=== PATIENT | male | born 1940 | race Caucasian/White ===

== ENCOUNTER 2018-09-09 18:43 | Inpatient (IN) | payer MEDICARE, OTHER ==
[~2018-09-09] VITALS: Ht 170.2 cm; Wt 47.3 kg
[2018-09-09] MEDS ORDERED: SODIUM CHLORIDE 0.9% 1000ML BAG (SEPSIS BOLUS) IV ONE (19:15)
[2018-09-09 19:48] LABS: BASOPHILS % 0.3 % (0.0-2.0); CHLORIDE 111 mEq/L (98-107); HEMATOCRIT. 41.2 % (42.0-52.0); HEMOGLOBIN. 13.7 g/dL (14.0-18.0); LYMPHOCYTES % 12.3 % (20.0-50.0); MEAN CORPUSCULAR HEMOGLOBIN 30.8 pg (28.0-32.0); MEAN CORPUSCULAR VOLUME 92.5 fL (80.0-94.0); MEAN PLATELET VOLUME 8.6 fl (7.4-10.4); MONOCYTES % 8.4 % (2.0-8.0); PLATELET 384 x1000/uL (130-400); RED BLOOD CELL COUNT 4.45 mill/uL (4.7-6.1); RED CELL DISTRIBUTION WIDTH 14.1 % (11.6-14.6)
[2018-09-09 19:51] LABS: INR 1.2; PROTHROMBIN TIME 12.5 sec (9.6-11.0)
[2018-09-09 19:52] LABS: ETHANOL BLOOD < 10 mg/dL
[2018-09-09 20:37] LABS: CLARITY URINE CLEAR (CLEAR); COLOR URINE YELLOW (YELLOW); KETONES URINE TRACE (NEGATIVE); LEUKOCYTE ESTERASE URINE NEGATIVE (NEGATIVE); NITRITE URINE NEGATIVE (NEGATIVE); OCCULT BLOOD URINE NEGATIVE (NEGATIVE); PROTEIN URINE TRACE (NEGATIVE); SPECIFIC GRAVITY URINE 1.019 (1.005-1.030)
[2018-09-09] MEDS ORDERED: AZITHROMYCIN 500 MG in DEXT 5% WATER 250 ML IV NR (20:45)
[2018-09-09] MEDS ORDERED: PIPERACILLIN/TAZOBACTAM 3.375GM/50ML PREMIX IV ONE (20:45)
[2018-09-09] MEDS ORDERED: PIPERACILLIN/TAZ 3.375G PREMIX 50 ML IV NR (21:00)
[2018-09-09] MEDS ORDERED: DIPHENHYDRAMINE 50MG/ML VIAL IV PRN (23:00)
[2018-09-09] MEDS ORDERED: MAGNESIUM/ALUMINUM HYDROXIDE/SIMETHICONE 30ML UDC PO PRN (23:00)
[2018-09-09] MEDS ORDERED: LORAZEPAM 0.5MG TABLET PO PRN (23:00)
[2018-09-09] MEDS ORDERED: IPRATROPIUM/ALBUTEROL 0.5-3(2.5)MG/3ML NEB INH PRN (23:00)
[2018-09-09] MEDS ORDERED: GUAIFENESIN 200MG/10ML SUGAR FREE UDC PO PRN (23:00)
[2018-09-09] MEDS ORDERED: SODIUM CHLORIDE 0.9% 1,000 ML IV ONE (23:00)
[2018-09-09] MEDS ORDERED: ONDANSETRON HCL 4MG/2ML INJ IV PRN (23:00)
[2018-09-10] VITALS (14 sets, daily range): BP systolic 77–133; BP diastolic 39–87
[2018-09-10] MEDS: DEXT 5%/0.45% NACL 1000ML 1,000 ML IV SCH ×3 (00:33→21:15)
[2018-09-10] MEDS ORDERED: CEFTRIAXONE 1 G PREMIX 50 ML IV SCH (01:00)
[2018-09-10] MEDS: CEFTRIAXONE 1 G PREMIX 50 ML IV SCH (02:33)
[2018-09-10 06:16] LABS: BASOPHILS % 0.4 % (0.0-2.0); EOSINOPHILS % 0.2 % (0.0-5.0); HEMATOCRIT. 31.6 % (42.0-52.0); HEMOGLOBIN. 10.8 g/dL (14.0-18.0); LYMPHOCYTES % 14.7 % (20.0-50.0); MEAN CORPUSCULAR VOLUME 91.1 fL (80.0-94.0); MEAN PLATELET VOLUME 7.9 fl (7.4-10.4); MONOCYTES % 8.6 % (2.0-8.0); NEUTROPHILS % 76.1 % (40.0-76.0); PLATELET 245 x1000/uL (130-400); RED BLOOD CELL COUNT 3.47 mill/uL (4.7-6.1); RED CELL DISTRIBUTION WIDTH 13.5 % (11.6-14.6)
[2018-09-10 07:23] LABS: PHOSPHORUS 2.9 mg/dL (2.5-4.9)
[2018-09-10] MEDS ORDERED: POTASSIUM CHLORIDE INJ 40 MEQ in DEXT 5% WATER 250 ML IV NR (11:30)
[2018-09-11] VITALS (16 sets, daily range): BP systolic 78–172; BP diastolic 45–77
[2018-09-11] MEDS: CEFTRIAXONE 1 G PREMIX 50 ML IV SCH (01:04)
[2018-09-11] MEDS: DEXT 5%/0.45% NACL 1000ML 1,000 ML IV SCH (04:57)
[2018-09-11 05:58] LABS: BASOPHILS % 0.6 % (0.0-2.0); EOSINOPHILS % 1.3 % (0.0-5.0); HEMATOCRIT. 30.2 % (42.0-52.0); HEMOGLOBIN. 10.2 g/dL (14.0-18.0); LYMPHOCYTES % 14.7 % (20.0-50.0); MEAN CORPUSCULAR HEMOGLOBIN 30.7 pg (28.0-32.0); MEAN CORPUSCULAR VOLUME 91.2 fL (80.0-94.0); MEAN PLATELET VOLUME 8.5 fl (7.4-10.4); MONOCYTES % 9.3 % (2.0-8.0); NEUTROPHILS % 74.1 % (40.0-76.0); PLATELET 236 x1000/uL (130-400); RED BLOOD CELL COUNT 3.32 mill/uL (4.7-6.1)
[2018-09-11 06:09] LABS: CHLORIDE 123 mEq/L (98-107)
[2018-09-11 06:20] LABS: PHOSPHORUS 1.6 mg/dL (2.5-4.9)
[2018-09-11] MEDS: DOCUSATE SODIUM 250MG CAPSULE PO SCH ×2 (09:15→16:53)
[2018-09-11] MEDS ORDERED: DOCUSATE SODIUM 250MG CAPSULE PO NR (09:15)
[2018-09-11] MEDS ORDERED: BISACODYL 5MG TABLET PO NR (09:15)
[2018-09-11 11:30] LABS: CARCINO EMBRYONIC ANTIGEN 0.9 ng/ml
[2018-09-11] MEDS ORDERED: POTASSIUM PHOS,M-BASIC-D-BASIC 20 MMOL in DEXT 5% WATER 243.3333 ML IV ONE (11:30)
[2018-09-11 11:41] LABS: HEPATITIS B SURFACE ANTIGEN NEGATIVE
[2018-09-11 12:07] LABS: HEPATITIS A AB IGM NEGATIVE (NEGATIVE)
[2018-09-11] MEDS: PANTOPRAZOLE SODIUM 40 MG/VIAL IV SCH (13:21)
[2018-09-11] MEDS: DEXT 5%/0.45% NACL KCL 20MEQ/L 1,000 ML IV SCH (16:31)
[2018-09-12] VITALS (11 sets, daily range): BP systolic 82–168; BP diastolic 46–72
[2018-09-12] MEDS: CEFTRIAXONE 1 G PREMIX 50 ML IV SCH (03:26)
[2018-09-12] MEDS: DEXT 5%/0.45% NACL KCL 20MEQ/L 1,000 ML IV SCH (03:26)
[2018-09-12 06:12] LABS: BASOPHILS % 0.6 % (0.0-2.0); HEMATOCRIT. 26.8 % (42.0-52.0); LYMPHOCYTES % 17.4 % (20.0-50.0); MEAN CORPUSCULAR HEMOGLOBIN 30.9 pg (28.0-32.0); MEAN CORPUSCULAR VOLUME 91.6 fL (80.0-94.0); MEAN PLATELET VOLUME 8.2 fl (7.4-10.4); PLATELET 207 x1000/uL (130-400); RED BLOOD CELL COUNT 2.92 mill/uL (4.7-6.1)
[2018-09-12 06:31] LABS: CHLORIDE 122 mEq/L (98-107)
[2018-09-12 06:47] LABS: PHOSPHORUS 1.5 mg/dL (2.5-4.9)
[2018-09-12] MEDS: PANTOPRAZOLE SODIUM 40 MG/VIAL IV SCH (08:53)
[2018-09-12] MEDS: DOCUSATE SODIUM 250MG CAPSULE PO SCH ×2 (08:58→17:00)
[2018-09-12] MEDS ORDERED: POTASSIUM PHOS,M-BASIC-D-BASIC 30 MMOL in DEXT 5% WATER 500 ML IV SCH (11:30)
[2018-09-12] MEDS: DEXT 5%/0.2% NACL 1,000 ML IV SCH ×2 (12:43→21:53)
[2018-09-13] VITALS: BP 134/52
[2018-09-13] MEDS: CEFTRIAXONE 1 G PREMIX 50 ML IV SCH (02:36)
[2018-09-13 03:00] VITALS: BP 116/52
[2018-09-13] MEDS: DEXT 5%/0.2% NACL 1,000 ML IV SCH ×2 (06:31→20:23)
[2018-09-13 08:17] VITALS: BP 101/49
[2018-09-13] MEDS: PANTOPRAZOLE SODIUM 40 MG/VIAL IV SCH (08:34)
[2018-09-13] MEDS: DOCUSATE SODIUM 250MG CAPSULE PO SCH ×2 (08:42→17:00)
[2018-09-13 12:00] VITALS: BP 116/51
[2018-09-13 16:00] VITALS: BP 115/50
[2018-09-13 20:00] VITALS: BP 108/47
[2018-09-13] MEDS: ACETAMINOPHEN 325MG TABLET PO PRN (23:51)
[2018-09-14] VITALS: BP 107/56
[2018-09-14] MEDS: CEFTRIAXONE 1 G PREMIX 50 ML IV SCH (01:38)
[2018-09-14 04:00] VITALS: BP 109/65
[2018-09-14] MEDS: DEXT 5%/0.2% NACL 1,000 ML IV SCH ×2 (05:26→18:32)
[2018-09-14 06:50] LABS: BASOPHILS % 0.7 % (0.0-2.0); EOSINOPHILS % 3.7 % (0.0-5.0); HEMATOCRIT. 26.6 % (42.0-52.0); LYMPHOCYTES % 18.4 % (20.0-50.0); MEAN CORPUSCULAR HEMOGLOBIN 30.7 pg (28.0-32.0); MEAN CORPUSCULAR VOLUME 91.1 fL (80.0-94.0); MEAN PLATELET VOLUME 7.9 fl (7.4-10.4); MONOCYTES % 10.5 % (2.0-8.0); NEUTROPHILS % 66.7 % (40.0-76.0); PLATELET 198 x1000/uL (130-400); RED BLOOD CELL COUNT 2.92 mill/uL (4.7-6.1); RED CELL DISTRIBUTION WIDTH 13.6 % (11.6-14.6)
[2018-09-14 08:00] VITALS: BP 109/50
[2018-09-14] MEDS: DOCUSATE SODIUM 250MG CAPSULE PO SCH ×3 (09:00→17:00)
[2018-09-14] MEDS: PANTOPRAZOLE SODIUM 40 MG/VIAL IV SCH (09:41)
[2018-09-14 09:54] LABS: T4 FREE 1.26 ng/dL (0.76-1.46)
[2018-09-14 10:46] LABS: VITAMIN B12 SERUM > 2000.0 pg/mL (211-911)
[2018-09-14 12:00] VITALS: BP 101/52
[2018-09-14] MEDS ORDERED: SODIUM BICARBONATE 4% (2.4MEQ) 5ML VIAL IV ONE (13:47)
[2018-09-14] MEDS ORDERED: LIDOCAINE HCL 1% 20ML VIAL (Pyxis) INJ ONE (13:48)
[2018-09-14 16:00] VITALS: BP 101/52
[2018-09-14 17:18] LABS: HEMATOCRIT 25.8 % (42.0-52.0); HEMOGLOBIN 8.8 g/dL (14.0-18.0)
[2018-09-14 20:00] VITALS: BP 91/52
[2018-09-15] VITALS: BP_SYST 106; BP_SYST 87; BP_DIAS 45; BP_DIAS 50
[2018-09-15] MEDS: CEFTRIAXONE 1 G PREMIX 50 ML IV SCH (01:39)
[2018-09-15 04:00] VITALS: BP 117/61
[2018-09-15] MEDS: ACETAMINOPHEN 325MG TABLET PO PRN (04:05)
[2018-09-15] MEDS: DEXT 5%/0.2% NACL 1,000 ML IV SCH (04:14)
[2018-09-15 06:40] LABS: BASOPHILS % 0.5 % (0.0-2.0); EOSINOPHILS % 1.4 % (0.0-5.0); HEMATOCRIT. 23.1 % (42.0-52.0); LYMPHOCYTES % 7.3 % (20.0-50.0); MEAN CORPUSCULAR HEMOGLOBIN 30.9 pg (28.0-32.0); MEAN CORPUSCULAR VOLUME 89.4 fL (80.0-94.0); MEAN PLATELET VOLUME 7.7 fl (7.4-10.4); MONOCYTES % 6.9 % (2.0-8.0); NEUTROPHILS % 83.9 % (40.0-76.0); PLATELET 203 x1000/uL (130-400); RED BLOOD CELL COUNT 2.59 mill/uL (4.7-6.1); RED CELL DISTRIBUTION WIDTH 13.5 % (11.6-14.6)
[2018-09-15 08:00] VITALS: BP 90/50
[2018-09-15 08:45] LABS: PHOSPHORUS 2.1 mg/dL (2.5-4.9)
[2018-09-15] MEDS: DOCUSATE SODIUM 250MG CAPSULE PO SCH ×2 (09:00→16:45)
[2018-09-15] MEDS: PANTOPRAZOLE SODIUM 40 MG/VIAL IV SCH (09:25)
[2018-09-15] MEDS ORDERED: SODIUM PHOS,M-BASIC-D-BASIC 30 MM in DEXT 5% WATER 500 ML IV NR (11:00)
[2018-09-15 12:00] VITALS: BP_SYST 90; BP_SYST 96; BP_DIAS 40; BP_DIAS 50
[2018-09-15 15:59] VITALS: BP_SYST 86; BP_SYST 94; BP_DIAS 45; BP_DIAS 50
[2018-09-15 20:00] VITALS: BP 93/49
[2018-09-16] VITALS: BP 86/39
[2018-09-16] MEDS: CEFTRIAXONE 1 G PREMIX 50 ML IV SCH (03:16)
[2018-09-16 04:00] VITALS: BP 92/44
[2018-09-16 06:32] LABS: BASOPHILS % 0.6 % (0.0-2.0); EOSINOPHILS % 1.5 % (0.0-5.0); HEMATOCRIT. 25.9 % (42.0-52.0); HEMOGLOBIN. 8.8 g/dL (14.0-18.0); MEAN CORPUSCULAR HEMOGLOBIN 30.6 pg (28.0-32.0); MEAN CORPUSCULAR VOLUME 89.5 fL (80.0-94.0); MONOCYTES % 1.3 % (2.0-8.0); NEUTROPHILS % 86.6 % (40.0-76.0); PLATELET 241 x1000/uL (130-400); RED CELL DISTRIBUTION WIDTH 13.8 % (11.6-14.6)
[2018-09-16 07:33] LABS: PHOSPHORUS 3.1 mg/dL (2.5-4.9)
[2018-09-16 08:00] VITALS: BP 85/38
[2018-09-16] MEDS: PANTOPRAZOLE SODIUM 40 MG/VIAL IV SCH (08:54)
[2018-09-16] MEDS ORDERED: MAGNESIUM 2 G PREMIX 50 ML IV NR (10:30)
[2018-09-16 12:00] VITALS: BP 97/39
[2018-09-16 16:00] VITALS: BP 96/46
[2018-09-16 20:00] VITALS: BP 96/42
[2018-09-17] VITALS (17 sets, daily range): BP systolic 99–126; BP diastolic 47–78
[2018-09-17] MEDS: CEFTRIAXONE 1 G PREMIX 50 ML IV SCH (03:12)
[2018-09-17 06:40] LABS: HEMATOCRIT. 25.5 % (42.0-52.0); HEMOGLOBIN. 8.8 g/dL (14.0-18.0); MEAN CORPUSCULAR HEMOGLOBIN 31.1 pg (28.0-32.0); MEAN CORPUSCULAR VOLUME 89.9 fL (80.0-94.0); MEAN PLATELET VOLUME 7.7 fl (7.4-10.4); PLATELET 287 x1000/uL (130-400); RED BLOOD CELL COUNT 2.83 mill/uL (4.7-6.1); RED CELL DISTRIBUTION WIDTH 13.4 % (11.6-14.6)
[2018-09-17 07:52] LABS: PLATELET ESTIMATE NORMAL
[2018-09-17 08:01] LABS: PHOSPHORUS 2.1 mg/dL (2.5-4.9)
[2018-09-17] MEDS ORDERED: SODIUM BICARBONATE 4% (2.4MEQ) 5ML VIAL IV ONE (09:38)
[2018-09-17] MEDS ORDERED: LIDOCAINE HCL 1% 20ML VIAL (Pyxis) INJ ONE (09:38)
[2018-09-17] MEDS ORDERED: FENTANYL CITRATE/PF 50MCG/ML 2ML VIAL IV ONE (10:15)
[2018-09-17] MEDS ORDERED: FENTANYL CITRATE/PF 50MCG/ML 2ML VIAL ONE (10:33)
[2018-09-17] MEDS: PANTOPRAZOLE SODIUM 40 MG/VIAL IV SCH (10:44)
[2018-09-17 13:24] LABS: HEMATOCRIT 27.1 % (42.0-52.0); HEMOGLOBIN 9.1 g/dL (14.0-18.0)
[2018-09-17] MEDS ORDERED: CLOP75TA33 PO (22:09)
[2018-09-17] MEDS ORDERED: LOSART (22:11)
[2018-09-17] MEDS ORDERED: LOSARTAN PO (22:11)
[2018-09-18] VITALS: BP 100/54
[2018-09-18 04:00] VITALS: BP 104/52
[2018-09-18 07:01] LABS: BASOPHILS % 0.7 % (0.0-2.0); EOSINOPHILS % 3.1 % (0.0-5.0); HEMATOCRIT. 23.6 % (42.0-52.0); HEMOGLOBIN. 8.2 g/dL (14.0-18.0); LYMPHOCYTES % 20.4 % (20.0-50.0); MEAN CORPUSCULAR HEMOGLOBIN 31.2 pg (28.0-32.0); MEAN CORPUSCULAR VOLUME 89.5 fL (80.0-94.0); MEAN PLATELET VOLUME 7.4 fl (7.4-10.4); NEUTROPHILS % 63.8 % (40.0-76.0); PLATELET 325 x1000/uL (130-400); RED BLOOD CELL COUNT 2.64 mill/uL (4.7-6.1); RED CELL DISTRIBUTION WIDTH 13.9 % (11.6-14.6)
[2018-09-18 07:41] LABS: PHOSPHORUS 2.2 mg/dL (2.5-4.9)
[2018-09-18 08:00] VITALS: BP 101/49
[2018-09-18] MEDS: PANTOPRAZOLE SODIUM 40 MG/VIAL IV SCH (08:51)
[2018-09-18] MEDS ORDERED: POTASSIUM PHOS,M-BASIC-D-BASIC 15 MMOL in DEXT 5% WATER 245 ML IV SCH (11:00)
[2018-09-18 11:39] VITALS: BP 110/44
[2018-09-18 16:00] VITALS: BP 104/48
[2018-09-18 16:57] VITALS: BP 104/48
== END 2018-09-18 20:13 | DRG 871 ==
LOC: ER 18:43 → ENRESERV 22:44 → 5EST 23:57 → 5WST 09-13 02:55 → 6EST 09-16 19:20
PROVIDERS: ADMIT Internal Medicine; ATTEND Internal Medicine
PROC: 0FB23ZX Excision of Left Lobe Liver, Percutaneous Approach, Diagnostic (ICD-10-PCS; principal; 2018-09-14)
PROC: 4A00X4Z Measurement of Central Nervous Electrical Activity, External Approach (ICD-10-PCS; 2018-09-14)
PROC: 0FB23ZX Excision of Left Lobe Liver, Percutaneous Approach, Diagnostic (ICD-10-PCS; 2018-09-17)
DX: A41.9 Sepsis, unspecified organism (principal); G92 Toxic encephalopathy; N17.9 Acute kidney failure, unspecified; E87.0 Hyperosmolality and hypernatremia; R64 Cachexia; E87.4 Mixed disorder of acid-base balance; Z68.1 Body mass index [BMI] 19.9 or less, adult; E87.6 Hypokalemia; K56.41 Fecal impaction; R16.0 Hepatomegaly, not elsewhere classified; D64.9 Anemia, unspecified; E87.8 Other disorders of electrolyte and fluid balance, not elsewhere classified; Z60.2 Problems related to living alone; I95.9 Hypotension, unspecified; E86.0 Dehydration; R26.9 Unspecified abnormalities of gait and mobility; K62.89 Other specified diseases of anus and rectum; I12.9 Hypertensive chronic kidney disease with stage 1 through stage 4 chronic kidney disease, or unspecified chronic kidney disease; N18.9 Chronic kidney disease, unspecified; K52.9 Noninfective gastroenteritis and colitis, unspecified; R29.6 Repeated falls; R32 Unspecified urinary incontinence; R62.7 Adult failure to thrive; R63.6 Underweight; Z82.49 Family history of ischemic heart disease and other diseases of the circulatory system; Z86.73 Personal history of transient ischemic attack (TIA), and cerebral infarction without residual deficits; Z87.891 Personal history of nicotine dependence
CPT/HCPCS: 36415; 71045; 74176; 76700; 76942; 77012; 80048; 80320; 82105; 82140; 82270; 82378; 82607; 82746; 83036; 83605; 83735; 83935; 84100; 84145; 84439; 84443; 84481; 84484; 85014; 85018; 86301; 86705; 86709; 86803; 87340; 87493; 88307; 88313; 92610; 93005; 93970; 96365; 97162; 97166; 99291; A6261; C9113; J0456; J0696; J2543; J3010; J3475; J3480; J3490; J7030; J7040; J7050; J7060; A4315; G0480